=== PATIENT | female | born 2000 | race Caucasian/White ===

== ENCOUNTER 2024-06-07 17:21 | Emergency (ER) | payer OTHER ==
[~2024-06-07] VITALS: Ht 160 cm; Wt 54.4 kg
[2024-06-07 17:40] VITALS: PULSE 96; RESP 16; TEMP 98.1; O2SAT 100
[2024-06-07] MEDS ORDERED: PENICILLIN V P500 MG PO (18:45)
[2024-06-07] MEDS ORDERED: KETOROLAC TROME10 MG PO (18:45)
== END 2024-06-07 18:50 | disposition home or self-care (01) ==
LOC: ER 18:43
DX: K04.7 Periapical abscess without sinus (principal); K02.9 Dental caries, unspecified; F17.210 Nicotine dependence, cigarettes, uncomplicated
CPT/HCPCS: 99283